=== PATIENT | female | born 1945 | race Asian ===

== ENCOUNTER 2022-02-26 18:13 | Emergency (ER) | payer MEDICARE, BC, SELFPAY ==
--- NOTE | ~2022-02-26 | XR_ITS ---
XR humerus LT DATE: 02/26/2022 19:05 INDICATION: Dog bite TECHNIQUE: AP and lateral views COMPARISON: None FINDINGS: There is osteopenia. No fracture or dislocation of the left humerus. Normal alignment at the acromioclavicular, glenohumer al and elbow joints. No periosteal reaction or bone destruction. No subcutaneous emphysema or radiopaque foreign body of the upper arm. IMPRESSION: Osteopenia Reviewed, dictated and finalized at location B. IMPRESSION: Osteopenia
--- NOTE | ~2022-02-26 | XR_ITS ---
XR forearm LT 2V DATE: 02/26/2022 19:05 INDICATION: Dog bite to left upper extremity TECHNIQUE: 2 views COMPARISON: None FINDINGS: Diffuse osteopenia. No fracture or dislocation. No periosteal reaction or bone destruction. There is chondrocalcinosis at the triangular cartilage. No radiopaque soft tissue foreign body is noted but there is mild subcutaneous emphysema of the dista l forearm. IMPRESSION: Mild subcutaneous emphysema of the distal forearm No radiographic foreign body, fracture or dislocation Osteopenia Triangular cartilage chondrocalcinosis Reviewed, dictated and finalized at location B.
[2022-02-26 18:14] VITALS: BP 140/83; PULSE 88; RESP 16; TEMP 36.8; O2SAT 97
--- NOTE | 2022-02-26 18:43 | ED.ANIMALBIT ---
HPI - Animal Bite General Chief Complaint: Animal Bite Stated Complaint: DOG BITE Time Seen by Provider: 02/26/22 18:26 Source: patient Mode of arrival: EMS Limitations: no limitations History of Present Illness HPI narrative: Patient is a 76 y/o female who presents to the ED via EMS with c/o dog bite to her L arm. Patient reports she was walking around her neighborhood tonight when she was bit by a neighbor walking her [place] dog. She sustained puncture wounds/bites to her left wrist and left inner upper arm. She did fall to the ground after the incident and sustained some abrasions to her elbow. No HI/LOC. She does believe the dog's shots are up-to-date, but they have already contacted Animal Control. Patient's tetanus status unknown. Related Data Allergies Allergy/AdvReac Type Severity Reaction Status Date / Time No Known Allergies Allergy Verified 02/26/22 18:43 Review of Systems Review of Systems: CONSTITUTIONAL: Denies fever, chills, or sweats. CARDIOVASCULAR: Denies chest pain. RESPIRATORY: Denies dyspnea. GASTROINTESTINAL: Denies nausea, vomiting. SKIN: Reports puncture wounds/bites to left upper arm, left wrist. Reports abrasions to left elbow. MUSCULOSKELETAL: Denies back pain, joint pain, or myalgia. NEUROLOGIC: Denies HI, LOC. All systems reviewed & are unremarkable except as noted in HPI and below PMFSH Past Medical History Medical History No pertinent past medical history Surgical History Surgical History (Updated 02/26/22 @ 18:49 by Vianca Gay PA-C) No pertinent past surgical history Social History Social History (Updated 02/26/22 @ 18:49 by Vianca Gay PA-C) Smoking status: Never smoker Exam Narrative: GENERAL: Well appearing, well-nourished, non-toxic, in no acute distress. HEAD: Normocephalic, atraumatic. EYES: PERRL/EOMI, conjunctivae clear bilaterally. NECK: Supple. No adenopathy, no masses. RESPIRATORY: Airway patent, respirations nonlabored. Clear to auscultation bilaterally, no rales, rhonchi, wheezing. CARDIOVASCULAR: Regular rate and rhythm without murmurs, rubs, or gallops. Radial pulses 2+ and equal bilaterally. MUSCULOSKELETAL: Moves all extremities. Strength/ROM intact without gross deformities. Full ROM of LUE at wrist, elbow, and shoulder. Puncture wounds to L inner arm with surrounding bruising, tenderness to palpation. Small abrasions to posterior upper arm. 2 puncture wounds to volar region of left wrist/distal forearm with 1 puncture wound to mid dorsal side of wrist. Bleeding controlled at this time. Small linear scrapes/abrasions to L forearm. SKIN: Warm, dry, normal color. NEURO: A&O X3. Speech clear. Cranial nerves II-XII grossly intact. Steady gait. No ataxic movements. PSYCHIATRIC: Appropriate mood and affect. Normal interaction. Course Vital Signs Vital signs: Vital Signs Temperature 98.3 F 02/26/22 18:14 Pulse Rate 88 02/26/22 18:14 Respiratory Rate 16 02/26/22 18:14 Blood Pressure 140/83 02/26/22 18:14 Pulse Oximetry 97 02/26/22 18:14 Temperature 98.3 F 02/26/22 18:14 Pulse Rate 88 02/26/22 18:14 Respiratory Rate 16 02/26/22 18:14 Blood Pressure 140/83 02/26/22 18:14 Pulse Oximetry 97 02/26/22 18:14 MDM - Animal Bite MDM Narrative Medical decision making narrative: Patient presented to ED via EMS with report of dog bite. Sustained puncture wounds to left medial upper arm and near left wrist. X-rays of forearm and humerus without retained foreign body or acute osseous abnormality. X-ray of forearm does show subcutaneous emphysema of the distal forearm, consistent with area of puncture wound. Patient's wounds were thoroughly irrigated and bandaged. Tetanus status is updated. Patient was given information about animal control reporting. Recommended follow-up with primary care doctor within the next week for wound evaluation
[2022-02-26] MEDS: TETANUS,DIPHTHERIA,AC PERTUSSIS ADULT (0.5 ML) BOOSTRIX IM (19:16)
[2022-02-26] MEDS: AMOXICILLIN/CLAVULANATE K 875-125 MG TAB 1 TABLET PO (20:29)
--- NOTE | 2022-02-26 20:30 | PC.NURSE ---
This RN irrigated and cleaned wounds and provided antibiotic ointment and bandaids to wounds.
== END 2022-02-26 20:30 | disposition home or self-care (01) ==
PROVIDERS: Emergency Provider Emergency Medicine
DX: S61.552A Open bite of left wrist, initial encounter (principal); S41.152A Open bite of left upper arm, initial encounter; W54.0XXA Bitten by dog, initial encounter; Z23 Encounter for immunization
CPT/HCPCS: 73060; 73090; 90471; 90714; 90715; 99284; A9270

== ENCOUNTER 2022-11-18 07:43 | Outpatient (CLI) | payer MEDICARE, BC, SELFPAY ==
--- NOTE | ~2022-11-18 | XR_ITS ---
EXAMINATION: XR knee RT 3V DATE: 11/18/2022 08:18 INDICATION: Right knee pain. TECHNIQUE: 3 views of right knee were obtained. COMPARISON: None. FINDINGS: Bone alignment is normal. No fracture. There is mild tricompartmental osteoarthritis. There is a small knee joint effusion. IMPRESSION: 1. Mild right knee osteoarthritis. 2. Small right knee joint effusion. Reviewed, dictated and finalized at location A.
[2022-11-18 08:42] LABS: Basophils Percent Auto 0.7 % (0.2-1.2); Eosinophils Absolute Auto 0.2 K/mm3 (0-0.3); Eosinophils Percent Auto 2.8 % (0-4.4); Hematocrit 42.4 % (37.0-47.0); Hemoglobin 14.3 g/dL (12.0-15.0); Immature Granulocyte Absolute 0.01 K/mm3 (0.00-0.031); Immature Granulocyte Percent A 0.2 % (0-0.5); Lymphocytes Absolute Auto 1.68 K/mm3 (0.9-3.2); Lymphocytes Percent Auto 28.1 % (18.3-44.2); Mean Corpuscular HGB Conc 33.7 g/dl (32-36); Mean Corpuscular Hemoglobin 33.6 pg (26-34); Mean Corpuscular Volume 99.8 fl (80-100); Mean Platelet Volume 9.5 fl (7.4-10.4); Monocytes Absolute Auto 0.5 K/mm3 (0.1-0.6); Monocytes Percent Auto 8.4 % (2.6-8.5); Neutrophils Absolute Auto 3.6 K/mm3 (1.3-6.7); Neutrophils Percent Auto 59.8 % (45.5-73.1); Platelet Count Result 204 k/mm3 (150-375); Red Blood Count 4.25 M/mm3 (4.2-5.4); Red Cell Distribution Width 12.3 % (11.5-14.5)
[2022-11-18 08:55] LABS: Alanine Aminotransferase 69 U/L (6-35); Albumin Level 4.7 g/dL (3.5-5.1); Alkaline Phosphatase 157 U/L (38-126); Anion Gap 8 mmol/L (8-16); Aspartate Amino Transferase 65 U/L (14-36); Bilirubin,Total 0.5 mg/dL (0.2-1.3); Blood Urea Nitrogen 14 mg/dL (7-17); Calcium 8.7 mg/dL (8.4-10.2); Carbon Dioxide 27 mmol/L (22-30); Chloride 105 mmol/L (98-107); Cholesterol 137 mg/dL (0-200); Estimated Glomerular Filt Rate > 60; Glucose 157 mg/dL (65-110); HDL Direct 68 mg/dL; Potassium 4.1 mmol/L (3.4-5.0); Sodium 140 mmol/L (137-145); Triglycerides 155 mg/dL (<150)
[2022-11-18 09:06] LABS: LDL Cholesterol Direct 49 mg/dL
[2022-11-18 09:08] LABS: Creatinine Urine 118.4 mg/dL
[2022-11-18 09:11] LABS: Hemoglobin A1C 6.5 % (<5.7)
[2022-11-18 09:12] LABS: MALB Creatinine Ratio 85.1 mg/g (0-30); Microalbumin Urine Random 100.7 mg/L (0-16.7)
== END 2022-11-18 07:44 | disposition home or self-care (01) ==
PROVIDERS: PCP Family Medicine; Visit Provider Physician Assistant Medical
DX: M17.11 Unilateral primary osteoarthritis, right knee (principal); M25.461 Effusion, right knee; E11.9 Type 2 diabetes mellitus without complications; I10 Essential (primary) hypertension; H35.30 Unspecified macular degeneration; E78.5 Hyperlipidemia, unspecified
CPT/HCPCS: 36415; 73562; 80053; 80061; 82043; 83036; 85025

== ENCOUNTER 2024-02-19 10:59 | Outpatient (CLI) | payer MEDICARE, BC, SELFPAY ==
[2024-02-19 11:39] LABS: Basophils Percent Auto 0.8 % (0.2-1.2); Eosinophils Absolute Auto 0.2 K/mm3 (0-0.3); Eosinophils Percent Auto 3.4 % (0-4.4); Hematocrit 39.2 % (37.0-47.0); Hemoglobin 13.1 g/dL (12.0-15.0); Immature Granulocyte Absolute 0.01 K/mm3 (0.00-0.031); Immature Granulocyte Percent A 0.2 % (0-0.5); Lymphocytes Percent Auto 19.8 % (18.3-44.2); Mean Corpuscular HGB Conc 33.4 g/dl (32-36); Mean Corpuscular Hemoglobin 33.3 pg (26-34); Mean Corpuscular Volume 99.7 fl (80-100); Mean Platelet Volume 9.9 fl (7.4-10.4); Monocytes Absolute Auto 0.4 K/mm3 (0.1-0.6); Monocytes Percent Auto 8.1 % (2.6-8.5); Neutrophils Absolute Auto 3.4 K/mm3 (1.3-6.7); Neutrophils Percent Auto 67.7 % (45.5-73.1); Platelet Count Result 166 k/mm3 (150-375); Red Blood Count 3.93 M/mm3 (4.2-5.4); Red Cell Distribution Width 12.2 % (11.5-14.5); White Blood Count 5.1 K/mm3 (4.5-10.0)
[2024-02-19 12:10] LABS: Alanine Aminotransferase 71 U/L (6-35); Albumin Level 4.5 g/dL (3.5-5.1); Alkaline Phosphatase 174 U/L (38-126); Anion Gap 10 mmol/L (4-12); Aspartate Amino Transferase 80 U/L (14-36); Bilirubin,Total 0.4 mg/dL (0.2-1.3); Blood Urea Nitrogen 16 mg/dL (7-17); Calcium 8.8 mg/dL (8.4-10.2); Carbon Dioxide 25 mmol/L (22-30); Chloride 104 mmol/L (98-107); Cholesterol 119 mg/dL (0-200); Estimated Glomerular Filt Rate > 60; Glucose 145 mg/dL (65-110); HDL Direct 59 mg/dL; Potassium 3.9 mmol/L (3.4-5.0); Sodium 139 mmol/L (137-145); Triglycerides 98 mg/dL (<150)
[2024-02-19 12:21] LABS: LDL Cholesterol Direct 46 mg/dL
[2024-02-19 14:36] LABS: Creatinine Urine 152.3 mg/dL
[2024-02-19 14:41] LABS: MALB Creatinine Ratio 77.5 mg/g (0-30); Microalbumin Urine Random 118.1 mg/L (0-16.7)
== END 2024-02-19 11:00 | disposition home or self-care (01) ==
PROVIDERS: PCP Family Medicine; Visit Provider Physician Assistant Medical
DX: R79.89 Other specified abnormal findings of blood chemistry (principal); I10 Essential (primary) hypertension; E78.5 Hyperlipidemia, unspecified; E11.9 Type 2 diabetes mellitus without complications; Z87.19 Personal history of other diseases of the digestive system
CPT/HCPCS: 36415; 80053; 80061; 82043; 85025

== ENCOUNTER 2024-03-06 07:39 | Outpatient (CLI) | payer MEDICARE, BC, SELFPAY ==
--- NOTE | ~2024-03-06 | US_ITS ---
EXAMINATION: US abdomen complete DATE: 03/06/2024 08:12 INDICATION: Other specified abnormal findings of blood chemistry. Abnormal liver function tests. TECHNIQUE: Multiple grayscale and Doppler ultrasound images of the abdomen were obtained. COMPARISON: None FINDINGS: The visualized portions of the head, body, and tail of the pancreas are normal. The liver i s normal without focal lesion. The gallbladder is normal in size. No gallstones or gallbladder wall t hickening. There is no sonographic Aparicio's sign. The common duct is normal and measures 4 mm. There is normal flow in main portal vein. The kidneys are normal in size. The spleen is normal in size. Abd ominal aorta is normal in caliber. The inferior vena cava is normal. IMPRESSION: 1. Normal complete abdomen ultrasound. Reviewed, dictated and finalized at location A.
== END 2024-03-06 07:40 | disposition home or self-care (01) ==
LOC: MICIMG 07:40
PROVIDERS: PCP Family Medicine; Visit Provider Physician Assistant Medical
DX: R79.89 Other specified abnormal findings of blood chemistry (principal); Z87.19 Personal history of other diseases of the digestive system
CPT/HCPCS: 76700

== ENCOUNTER 2024-03-11 09:20 | Outpatient (CLI) | payer MEDICARE, BC, SELFPAY ==
[2024-03-11 11:57] LABS: Hepatitis B Surface Antigen Negative (Negative)
[2024-03-11 12:03] LABS: HAV RESULT Negative (Negative); Hepatitis B Core IgM Result Negative (Negative)
[2024-03-11 12:15] LABS: Hepatitis C Virus Antibody Negative (Negative)
== END 2024-03-11 09:21 | disposition home or self-care (01) ==
LOC: ANHLAB 09:23
PROVIDERS: PCP Family Medicine; Visit Provider Physician Assistant Medical
DX: R10.9 Unspecified abdominal pain (principal)
CPT/HCPCS: 36415; 80074

== ENCOUNTER 2024-04-09 09:02 | Outpatient (CLI) | payer MEDICARE, BC, SELFPAY ==
[2024-04-09 09:57] LABS: Prothrombin Time 13.7 Seconds (11.1-14.7)
[2024-04-09 10:10] LABS: Immunoglobulin G 1282 mg/dL (700-1600)
[2024-04-09 10:29] LABS: Iron 103 ug/dL (37-170)
[2024-04-09 10:39] LABS: Percent Iron Saturation 24 % (20-50)
[2024-04-09 11:01] LABS: Thyroid Stimulating Hormone Reflex 0.134 uIU/mL (0.465-4.68)
[2024-04-09 12:04] LABS: Free T4 Free Thyroxine Reflex 1.34 ng/dL (0.78-2.19)
[2024-04-09 12:53] LABS: Total Triiodothyronine (T3) 1.63 NG/ML (0.97-1.69)
[2024-04-12 14:33] LABS: Alpha-1-Antitrypsin, QN 149 mg/dL (83-199); Ceruloplasmin 25 mg/dL (14-48)
[2024-04-13 08:08] LABS: Hepatitis A Antibody Total REACTIVE (NON-REACTIVE)
[2024-04-14 12:48] LABS: LKM 1 Antibody <=20.0 U (<=20.0)
[2024-04-14 13:14] LABS: Actin Antibody (IgG) <20 U (<20)
[2024-04-15 01:54] LABS: ALT 69 U/L (6-29); Alpha-2-Macroglobulin 267 mg/dL (106-279); Apolipoprotein A1 192 mg/dL (101-198); Fibrosis Score 0.79; Fibrosis Stage F4; GGT 122 U/L (3-65); Haptoglobin 13 mg/dL (43-212); Necroinflammat Act Grade A2; Reference ID 5156548; Total Bilirubin 0.6 mg/dL (0.2-1.2)
[2024-04-16 15:52] LABS: Immunoglobulin A 165 mg/dL (70-320); TTG IGA AB <1.0 U/mL
[2024-04-23 06:44] LABS: Mitochondrial (M2) Ab (IgG) <20.0 U
== END 2024-04-09 09:03 | disposition home or self-care (01) ==
PROVIDERS: PCP Family Medicine; Visit Provider Nurse Practitioner
DX: R79.89 Other specified abnormal findings of blood chemistry (principal); R74.8 Abnormal levels of other serum enzymes; K74.60 Unspecified cirrhosis of liver; F32.A Depression, unspecified
CPT/HCPCS: 36415; 81596; 82103; 82390; 82728; 82784; 83520; 83540; 83550; 84439; 84443; 84480; 85610; 86038; 86039; 86364; 86376; 86708